=== PATIENT | female | born 1985 | race Two or more races ===

== ENCOUNTER 2017-07-21 21:36 | Emergency (ER) | payer MEDICAID ==
[~2017-07-21] VITALS: Ht 157.5 cm; Wt 94.8 kg
[2017-07-21 23:11] LABS: Urine Blood 3+ /uL (Negative); Urine Color PINK (Yellow); Urine Glucose Normal (Normal); Urine Ketone TRACE (Negative); Urine Mucus MODERATE (None Seen); Urine Nitrite Negative (Negative); Urine RBC 25 /hpf (0 - 4); Urine Squamous Epithelial Cell MANY /hpf (<5)
[2017-07-21 23:18] LABS: Basophils # (auto) 0.1 uL; Basophils % (auto) 0.6 % (0.0-2.0); Eosinophils # (auto) 0.1 uL; Eosinophils % (auto) 0.7 % (0.0-7.0); Hematocrit 41.2 % (36.0-46.0); Hemoglobin 13.4 g/dL (12.2-16.2); Lymphocytes # (auto) 3.3 uL; Lymphocytes % (auto) 18.5 % (10.0-50.0); Mean Corpuscular Hemoglobin 29.4 pg (28.0-32.0); Mean Corpuscular Hgb Conc. 32.5 g/dL (32.0-36.0); Mean Corpuscular Volume 90.4 fL (80.0-100.0); Mean Platelet Volume 8.2 fL (6.9-10.8); Monocytes # (auto) 0.8 uL; Monocytes % (auto) 4.7 % (0.0-12.0); Neutrophils # (auto) 13.3 uL; Neutrophils % (auto) 75.5 % (37.0-80.0); Platelet Count (auto) 350 10^3/uL (140-450); White Blood Cell 17.6 10^3/uL (4.4-10.8)
[2017-07-21 23:18] LABS: Urine Bilirubin POSITIVE (Negative)
[2017-07-21 23:24] LABS: BUN/Creatinine Ratio 23.4; Calcium 8.6 mg/dL (8.5-10.1); Potassium 3.3 mmol/L (3.5-5.1)
[2017-07-21 23:26] LABS: Bilirubin, Total 0.6 mg/dL (0.2-1.0); Total Protein 8.1 g/dL (6.4-8.2)
[2017-07-22 03:52] VITALS: BP 116/72
[2017-07-22] MEDS ORDERED: cefTRIAXone W LIDOCAINE 1 GM IM IM ONE (04:00)
[2017-07-22] MEDS ORDERED: cefTRIAXone SOD 1,000 MG VL ONE (04:12)
[2017-07-22] MEDS ORDERED: cefTRIAXone SOD 500 MG VL ONE (10:28)
== END 2017-07-22 04:42 | disposition home or self-care (01) ==
LOC: EDBD 21:36 → ER 21:36
DX: N39.0 Urinary tract infection, site not specified (principal); J40 Bronchitis, not specified as acute or chronic; F17.210 Nicotine dependence, cigarettes, uncomplicated
CPT/HCPCS: 36415; 80053; 81001; 81025; 82962; 85025; 93005; 96372; 99285; J0696

== ENCOUNTER 2018-02-14 15:22 | Emergency (ER) | payer BC, MEDICAID ==
[~2018-02-14] VITALS: Ht 160 cm; Wt 92.1 kg
[2018-02-14 16:24] LABS: Urine Bacteria NONE SEEN /hpf (None Seen); Urine Blood Negative /uL (Negative); Urine Mucus FEW (None Seen); Urine Specific Gravity 1.029 (1.001-1.035); Urine WBC 1 /hpf (0 - 5)
[2018-02-14 17:00] VITALS: BP 121/60
== END 2018-02-14 18:14 | disposition home or self-care (01) ==
LOC: ER 15:22
DX: O20.0 Threatened abortion (principal); O99.331 Smoking (tobacco) complicating pregnancy, first trimester; F17.210 Nicotine dependence, cigarettes, uncomplicated; Z3A.13 13 weeks gestation of pregnancy
CPT/HCPCS: 76805; 81001